=== PATIENT | male | born 1970 | race Caucasian/White ===

== ENCOUNTER 2017-06-03 08:04 | Emergency (ER) | payer OTHER, SELFPAY ==
[2017-06-03 08:05] VITALS: BP 164/112; PULSE 92; RESP 22; TEMP 36.9; O2SAT 98; BMI 25.2
--- NOTE | 2017-06-03 08:15 | XR_ITS ---
XR chest 2V HISTORY: ITS.REASON: chest pain ORDERING PHYSICIAN: PATIENT AGE: 46 years COMPARISON: None available FINDINGS: The cardiomediastinal silhouette and pulmonary vascularity are within normal limits. The lungs are clear without infiltrates, suspicious nodules, or pleural effusions. There is calcified granuloma in the left perihilar region. No acute bony abnormalities. IMPRESSION: No acute finding. Old granulomatous disease
--- NOTE | 2017-06-03 08:22 | PC.NURSE ---
Rechecked pt temp and it was 99.9 orally/
--- NOTE | 2017-06-03 08:38 | HMH.EDCP ---
ED Disposition Clinical Impression: Atypical chest pain Disposition: Home, Self-Care Condition on Discharge: Good Instructions: DI for Atypical Chest Pain Additional Instructions: See PCP in 1-3 days. Advil as needed. Continue allopurinol. - Critical Care Critical Care Time: No Attestation: On , the high probability of a clinically significant, sudden or life threatening deterioration of the following system(s) required my full and direct attention, intervention and personal management. The time I documented below is in addition to time spent performing reported procedures but includes the following listed in this critical care notation. Medical Decision Making - Medical Records Medical records reviewed: Yes: I reviewed the patient's medical records. Vital Signs: 06/03/17 08:05 Temperature 98.4 F Temperature Source Oral Pulse Rate [Right Brachial] 92 H Respiratory Rate 22 Blood Pressure [Right Arm] 164/112 Blood Pressure Mean [Right Arm] 129 Blood Pressure Source [Right Arm] Automatic Cuff Blood Pressure Position [Right Arm] Sitting 02 Sat by Pulse Oximetry 98 Oxygen Delivery Method Nasal Cannula - Lab Data Lab results reviewed: Yes: I reviewed the patient's lab results. Lab Results 06/03/17 08:30: WBC 9.6, RBC 4.66, Hgb 15.2, Hct 43.5, MCV 93.3, MCH 32.7 H, MCHC 35.0, RDW 12.3, Plt Count 200, MPV 8.3, Neut % (Auto) 81.8 H, Lymph % (Auto) 12.7, [place] % (Auto) 5.0, Eos % (Auto) 0.2, Baso % (Auto) 0.3, Neut # (Auto) 7.8, Lymph # (Auto) 1.2, [place] # (Auto) 0.5, Eos # (Auto) 0.0, Baso # (Auto) 0.0 06/03/17 08:30: Sodium 134 L, Potassium 3.7, Chloride 98, Carbon Dioxide 24, Anion Gap 15.7 H, BUN 9, Creatinine 1.09, Estimated Creat Clear 99, Estimated GFR 72, Est GFR ( Amer) 87, Glucose 114 H, Calcium 9.0, Total Bilirubin 1.7 H, AST 27, ALT 58, Alkaline Phosphatase 86, Total Creatine Kinase 111, CK-MB (CK-2) < 0.5, CK-MB (CK-2) Rel Index 0.5, Troponin I < 0.02, Cardiac CRP 25.1 H, Total Protein 7.9, Albumin 4.0, Globulin 3.9 H, Albumin/Globulin Ratio 1.0 L 06/03/17 08:30: Lactic Acid 1.0 06/03/17 08:30: Influenza Type A Ag Negative, Influenza Type B Ag Negative Result diagrams: 06/03/17 08:30 06/03/17 08:30 Orders (Tests/Meds): ED MEDICATIONS Generic Name Dose Route Start Last Admin Trade Name Freq PRN Reason Stop Dose Admin Nitroglycerin 0.4 mg 06/03/17 08:17 06/03/17 08:29 Nitrostat 0.4mg Sl Tablet SL 07/03/17 08:16 0.4 mg Q5MINP PRN Administration Chest Pain Discontinued Medications Generic Name Dose Route Start Last Admin Trade Name Freq PRN Reason Stop Dose Admin Aspirin 324 mg 06/03/17 08:21 06/03/17 08:29 Aspirin 81mg Chewable Tablet PO 06/03/17 08:22 324 mg ONCE ONE Administration Ketorolac Tromethamine 30 mg 06/03/17 09:26 Toradol 30mg/Ml Vial IV 06/03/17 09:27 ONCE ONE ORDERS Category Date Time Status Complete Blood Count Auto Diff Stat Lab 06/03/17 08:30 Results Erythrocyte Sedimentation Rate Stat Lab 06/03/17 08:30 Results Blood Culture Stat Micro 06/03/17 08:30 Received - Radiology Data #1 Image(s): Chest Image Reviewed: Yes I reviewed the patient's radiology image Preliminary Findings: Normal/NAD, No Infiltrates Seen, Normal Heart Size - ECG Data Tracing #1 I reviewed this ECG and interpreted as documented below: Normal sinus rhythm with rate of 89. Normal axis and intervals. No acute ST changes. no Ectopy or hypertrophy. - Shmuel Inquiry Pt receiving controlled substance: No Medical Decision Making Narrative: Patient's symptoms more c/w his inflammatory issues. CRP elevated. Already on Allopurinol; declines Indomethacin; declines Colchicine; tolerates Advil so may take that until seen by PCP. Chest Pain HPI - General Chief Complaint: Chest Pain Stated Complaint: chest pain, left arm gout pain Time Seen by Provider: 06/03/17 08:10 Mode of Arrival: Ambulatory Source of Information
--- NOTE | 2017-06-03 08:42 | ED_ITS ---
ED Disposition Clinical Impression: Atypical chest pain Disposition: Home, Self-Care Condition on Discharge: Good Instructions: DI for Atypical Chest Pain Additional Instructions: See PCP in 1-3 days. Advil as needed. Continue allopurinol. - Critical Care Critical Care Time: No Attestation: On , the high probability of a clinically significant, sudden or life threatening deterioration of the following system(s) required my full and direct attention, intervention and personal management. The time I documented below is in addition to time spent performing reported procedures but includes the following listed in this critical care notation. Medical Decision Making - Medical Records Medical records reviewed: Yes: I reviewed the patient's medical records. Vital Signs: 06/03/17 08:05 Temperature 98.4 F Temperature Source Oral Pulse Rate [Right Brachial] 92 H Respiratory Rate 22 Blood Pressure [Right Arm] 164/112 Blood Pressure Mean [Right Arm] 129 Blood Pressure Source [Right Arm] Automatic Cuff Blood Pressure Position [Right Arm] Sitting 02 Sat by Pulse Oximetry 98 Oxygen Delivery Method Nasal Cannula - Lab Data Lab results reviewed: Yes: I reviewed the patient's lab results. Lab Results 06/03/17 08:30: WBC 9.6, RBC 4.66, Hgb 15.2, Hct 43.5, MCV 93.3, MCH 32.7 H, MCHC 35.0, RDW 12.3, Plt Count 200, MPV 8.3, Neut % (Auto) 81.8 H, Lymph % (Auto ) 12.7, [place] % (Auto) 5.0, Eos % (Auto) 0.2, Baso % (Auto) 0.3, Neut # (Auto) 7.8, Lymph # (Auto) 1.2, [place] # (Auto) 0.5, Eos # (Auto) 0.0, Baso # (Auto) 0.0 06/03/17 08:30: Sodium 134 L, Potassium 3.7, Chloride 98, Carbon Dioxide 24, Anion Gap 15.7 H, BUN 9, Creatinine 1.09, Estimated Creat Clear 99, Estimated GFR 72, Est GFR ( Amer) 87, Glucose 114 H, Calcium 9.0, Total Bilirubin 1.7 H, AST 27, ALT 58, Alkaline Phosphatase 86, Total Creatine Kinase 111, CK- MB (CK-2) < 0.5, CK-MB (CK-2) Rel Index 0.5, Troponin I < 0.02, Cardiac CRP 25.1 H, Total Protein 7.9, Albumin 4.0, Globulin 3.9 H, Albumin/Globulin Ratio 1.0 L 06/03/17 08:30: Lactic Acid 1.0 06/03/17 08:30: Influenza Type A Ag Negative, Influenza Type B Ag Negative Result diagrams: 06/03/17 08:30 06/03/17 08:30 Orders (Tests/Meds): ED MEDICATIONS Generic Name Dose Route Start Last Admin Trade Name Freq PRN Reason Stop Dose Admin Nitroglycerin 0.4 mg 06/03/17 08:17 06/03/17 08:29 Nitrostat 0.4mg Sl Tablet SL 07/03/17 08:16 0.4 mg Q5MINP PRN Administration Chest Pain Discontinued Medications Generic Name Dose Route Start Last Admin Trade Name Freq PRN Reason Stop Dose Admin Aspirin 324 mg 06/03/17 08:21 06/03/17 08:29 Aspirin 81mg Chewable Tablet PO 06/03/17 08:22 324 mg ONCE ONE Administration Ketorolac Tromethamine 30 mg 06/03/17 09:26 Toradol 30mg/Ml Vial IV 06/03/17 09:27 ONCE ONE ORDERS Category Date Time Status Complete Blood Count Auto Diff Stat Lab 06/03/17 08:30 Results Erythrocyte Sedimentation Rate Stat Lab 06/03/17 08:30 Results Blood Culture Stat Micro 06/03/17 08:30 Received - Radiology Data #1 Image(s): Chest Image Reviewed: Yes I reviewed the patient's radiology image Preliminary Findings: Normal/NAD, No Infiltrates Seen, Normal Heart Size - ECG Data
[2017-06-03 08:49] LABS: Basophils % 0.3 % (0.1-2.0); Eosinophils % 0.2 % (0.1-12.0); Hematocrit 43.5 % (42.0-52.0); Hemoglobin 15.2 g/dL (14.1-18.0); Lymphocytes # 1.2 K/mm3 (0.7-4.5); Lymphocytes % 12.7 K/mm3 (10-50); Mean Corpuscular Hemoglobin 32.7 pg (27.0-31.2); Mean Corpuscular Volume 93.3 fl (80-94); Mean Platelet Volume 8.3 fl (7.4-10.4); Monocytes # 0.5 K/mm3 (0.1-1.0); Neutrophils # 7.8 K/mm3 (1.8-7.8); Neutrophils % 81.8 % (37.0-80.0); Platelet Count 200 K/mm3 (142-424); Red Blood Count 4.66 M/mm3 (4.60-6.20); Red Cell Distribution Width 12.3 % (11.5-17.5); White Blood Count 9.6 K/mm3 (4.8-10.8)
[2017-06-03 09:19] LABS: Troponin I < 0.02 ng/ml (0.00-0.06)
[2017-06-03 09:20] LABS: Creatine Kinase MB < 0.5 mg/ml (0.0-3.6)
[2017-06-03 09:35] LABS: Alanine Aminotransferase 58 U/L (12-78); Alkaline Phosphatase 86 U/L (46-116); Anion Gap 15.7 mEq/L (5-15); Aspartate Amino Transferase 27 U/L (15-37); Bilirubin,Total 1.7 mg/dL (0.2-1.0); Blood Urea Nitrogen 9 mg/dL (7-18); CKMB Relative Index 0.5 U/L (0-4.0); Carbon Dioxide 24 mmol/L (21.0-32.0); Chloride 98 mmol/L (98-107); Creatine Kinase 111 U/L (39-308); Creatinine Clearance Estimated 99 mL/min (0-300); Creatinine,Serum 1.09 mg/dL (0.70-1.30); Estimated Glomerular Filt Rate 72 ml/min (>60); GFR (African American) 87 ML/MIN (>60); Globulin 3.9 gm/dl (1.3-3.2); Glucose 114 mg/dL (74-106); Potassium 3.7 mmoL/L (3.5-5.1); Sodium 134 mmol/L (136-145); Total Protein,Serum 7.9 gm/dL (6.4-8.2)
--- NOTE | 2017-06-03 10:11 | PC.NURSE ---
one vial of ketorolac waisted due to error drawing out of vial
[2017-06-03 10:20] VITALS: BP 139/89; PULSE 84; RESP 20; TEMP 36.9; O2SAT 99
[2017-06-03 10:30] LABS: Erythrocyte Sedimentation Rate 27 mm/hr (0-15)
== END 2017-06-03 10:20 | disposition home or self-care (01) ==
PROVIDERS: Emergency Provider Emergency Medicine; Family Provider Family Medicine
DX: R07.89 Other chest pain (principal); M10.9 Gout, unspecified; M54.5 Low back pain; I10 Essential (primary) hypertension; E78.00 Pure hypercholesterolemia, unspecified; F17.290 Nicotine dependence, other tobacco product, uncomplicated
CPT/HCPCS: 71046; 80053; 82550; 82553; 83605; 84484; 85025; 85651; 86141; 87040; 87275; 87276; 93005; 93041; 96374; 99284

== ENCOUNTER → 2017-08-01 13:11 | Outpatient (POV) | payer OTHER, SELFPAY ==
[2017-08-01 13:45] VITALS: BP 113/86; PULSE 70; RESP 16; O2SAT 93; BMI 24.7
--- NOTE | 2017-08-01 14:34 | HMH.PMCON ---
Assessment and Plan (1) Degenerative joint disease (DJD) of lumbar spine Current visit: Yes Status: Chronic Qualifiers: Spinal osteoarthritis complication: without myelopathy or radiculopathy Qualified Code(s): M47.816 - Spondylosis without myelopathy or radiculopathy, lumbar region Category: Medical Code(s): M47.816 - Spondylosis without myelopathy or radiculopathy, lumbar region (2) Low back pain at multiple sites Current visit: Yes Status: Chronic Category: Medical Code(s): M54.5 - Low back pain - Assessment and plan all Dx Assessment and Plan for all problems:: I do believe this patient would be ideal for intrathecal therapy or spinal cord stimulation. Given his low back pain I believe you a good candidate for intrathecal therapy. I have given him information on intrathecal therapy. The patient is not interested in pursuing intrathecal therapy or spinal cord stimulation at this time. He will call us back if he decides to pursue any intervention. He has failed all other conservative therapy and exhausted all conservative treatment options. HPI - Data of Consult Patient: new to practice Consult date: 08/01/17 Requesting Physician: Lex Whitfield MD Primary Care Provider: Alessandro Mosher MD Family Provider: Alessandro Mosher MD - Consult Narrative Reason for consult: Low back pain History of present illness: Mr. Santos is a 46 year old male who has a long history of low back pain previously treated by Dr. Hatfield. He has received multiple injections, chiropractic therapy and he is not a surgical candidate. He is currently on disability. He was referred here as Dr. Hatfield has exhausted all treatment options. He is not on any oral narcotics. I have given him options of intrathecal therapy. He is going to think about it however he does not seem interested. Most of his pain is worse while standing or walking. He has chronic arthritis in his back. Pain score is a 6 out of 10. He tried chiropractic therapy and physical therapy. He is failed all conservative treatment and he is not a surgical candidate. CC: Lex Whitfield MD [facility] History I have reviewed the patient's past medical history: Yes Medical History: Reports:: Hyperlipidemia, Hypertension Denies:: Cancer, Diabetes Mellitus Type 1, Diabetes Mellitus Type 2, MRSA Other Medical History: Reports: Arthritis Amputation: No Fractures: No - *Social History Educational Level: Completed High School Smoking Status: Current every day smoker Tobacco Type: cigarettes # Packs/Day (cigarettes): 1 Alcohol Intake: never Occupational Status: disabled - Psychiatric History Expresses thoughts of harming self/others: None Suicide Plan Description: No Plan Review of Systems - Review of Systems Review of systems:: pertinent systems reviewed and negative unless documented below - *Musculoskeletal Reports back pain, Reports stiffness Meds Home Medications Medication Instructions Recorded Confirmed Type Losartan/Hydrochlorothiazide 1 each PO DAILY 06/03/17 06/03/17 History [Losartan-Hctz 50-12.5 mg Tab] Metoprolol Succinate 25 mg PO DAILY 06/03/17 06/03/17 History Allopurinol [Zyloprim] 100 mg PO DAILY 08/01/17 08/01/17 History predniSONE [Prednisone 5mg 5 mg PO DAILY 08/01/17 08/01/17 History Tab] Allergies Allergy/AdvReac Type Severity Reaction Status Date / Time codeine Allergy Mild Verified 06/03/17 08:18 Objective Vital signs: Pulse Resp BP Pulse Ox 70 16 113/86 93 L 08/01/17 13:45 08/01/17 13:45 08/01/17 13:45 08/01/17 13:45 - Routine Back/Spine/Pelvis Exam Back/Spine: Present: paraspinal tenderness, vertebral tenderness Opioid Risk Tool - Opioid Risk Tool-Male Family hx alcohol abuse: N Family hx illegal drugs: N Family hx rx drug abuse: N Personal hx alcohol abuse: N Personal hx illegal drugs: N Personal hx rx drug abuse: N Age: 45+ Hx of sexual abuse: N Men
--- NOTE | 2017-08-01 14:37 | P.CONS_ITS ---
Assessment and Plan (1) Degenerative joint disease (DJD) of lumbar spine Current visit: Yes Status: Chronic Qualifiers: Spinal osteoarthritis complication: without myelopathy or radiculopathy Qualified Code(s): M47.816 - Spondylosis without myelopathy or radiculopathy, lumbar region Category: Medical Code(s): M47.816 - Spondylosis without myelopathy or radiculopathy, lumbar region (2) Low back pain at multiple sites Current visit: Yes Status: Chronic Category: Medical Code(s): M54.5 - Low back pain - Assessment and plan all Dx Assessment and Plan for all problems:: I do believe this patient would be ideal for intrathecal therapy or spinal cord stimulation. Given his low back pain I believe you a good candidate for intrathecal therapy. I have given him information on intrathecal therapy. The patient is not interested in pursuing intrathecal therapy or spinal cord stimulation at this time. He will call us back if he decides to pursue any intervention. He has failed all other conservative therapy and exhausted all conservative treatment options. HPI - Data of Consult Patient: new to practice Consult date: 08/01/17 Requesting Physician: Lex Whitfield MD Primary Care Provider: Alessandro Mosher MD Family Provider: Alessandro Mosher MD - Consult Narrative Reason for consult: Low back pain History of present illness: Mr. Santos is a 46 year old male who has a long history of low back pain previously treated by Dr. Hatfield. He has received multiple injections, chiropractic therapy and he is not a surgical candidate. He is currently on disability. He was referred here as Dr. Hatfield has exhausted all treatment options. He is not on any oral narcotics. I have given him options of intrathecal therapy. He is going to think about it however he does not seem interested. Most of his pain is worse while standing or walking. He has chronic arthritis in his back. Pain score is a 6 out of 10. He tried chiropractic therapy and physical therapy. He is failed all conservative treatment and he is not a surgical candidate. CC: Lex Whitfield MD [facility] History I have reviewed the patient's past medical history: Yes Medical History: Reports:: Hyperlipidemia, Hypertension Denies:: Cancer, Diabetes Mellitus Type 1, Diabetes Mellitus Type 2, MRSA Other Medical History: Reports: Arthritis Amputation: No Fractures: No - *Social History Educational Level: Completed High School Smoking Status: Current every day smoker Tobacco Type: cigarettes # Packs/Day (cigarettes): 1 Alcohol Intake: never Occupational Status: disabled - Psychiatric History Expresses thoughts of harming self/others: None Suicide Plan Description: No Plan Review of Systems - Review of Systems Review of systems:: pertinent systems reviewed and negative unless documented below - *Musculoskeletal Reports back pain, Reports stiffness Meds Home Medications Medication Instructions Recorded Confirmed Type Losartan/Hydrochlorothiazide 1 each PO DAILY 06/03/17 06/03/17 History [Losartan-Hctz 50-12.5 mg Tab] Metoprolol Succinate 25 mg PO DAILY 06/03/17 06/03/17 History Allopurinol [Zyloprim] 100 mg PO DAILY 08/01/17 08/01/17 History predniSONE [Prednisone 5mg 5 mg PO DAILY 08/01/17 08/01/17 History Tab] Allergies Allergy/AdvReac Type Severity Reaction Status Date / Time codeine Allergy Mild Verified 06/03/17 08:18 Ob
== END ==
PROVIDERS: Family Provider Family Medicine; PCP Family Medicine; Visit Provider Anesthesiology
DX: M47.816 Spondylosis without myelopathy or radiculopathy, lumbar region (principal)
CPT/HCPCS: 99202

== ENCOUNTER 2020-07-24 10:48 | Emergency (ER) | payer OTHER, SELFPAY ==
[2020-07-24 10:49] VITALS: BP 165/109; BP 167/93; PULSE 87; PULSE 98; RESP 18; TEMP 36.6; O2SAT 97; O2SAT 98; BMI 27.1
--- NOTE | 2020-07-24 11:17 | HMH.EDGENADL ---
ED Disposition Clinical Impression: Spasm of back muscles Degenerative joint disease (DJD) of lumbar spine Qualifiers: Spinal osteoarthritis complication: without myelopathy or radiculopathy Qualified Code(s): M47.816 - Spondylosis without myelopathy or radiculopathy, lumbar region Disposition: Home, Self-Care Condition on Discharge: Fair Prescriptions: predniSONE [Prednisone 10mg Tab Dose-Pack] 10 mg PO UD DOSE PK #1 pack Transmission Status: Pending to Clinic [facility] Referrals: Alessandro Mosher MD [Primary Care Provider] - Time of Disposition: 12:35 - Critical Care Critical Care Time: No Attestation: On 07/24/20, the high probability of a clinically significant, sudden or life threatening deterioration of the following system(s) required my full and direct attention, intervention and personal management. The time I documented below is in addition to time spent performing reported procedures but includes the following listed in this critical care notation. Medical Decision Making - Medical Records Medical records reviewed: Yes: I reviewed the patient's medical records. - Shmuel Inquiry Pt receiving controlled substance: No Vital Signs: 07/24/20 10:49 07/24/20 11:19 07/24/20 12:00 Temperature 97.9 F Temperature Source Oral Pulse Rate [Right] 87 95 H Respiratory Rate 18 18 Blood Pressure [Right Arm] 167/93 H 145/71 H 135/76 Blood Pressure Mean [Right Arm] 117 95 95 02 Sat by Pulse Oximetry 98 98 Orders (Tests/Meds): ED MEDICATIONS Discontinued Medications Generic Name Dose Route Start Last Admin Trade Name Freq PRN Reason Stop Dose Admin Diazepam 2.5 mg 07/24/20 11:14 07/24/20 11:33 Diazepam 5mg Tablet PO 07/24/20 11:15 2.5 mg ONCE ONE Administration Ketorolac Tromethamine 15 mg 07/24/20 11:13 07/24/20 11:34 Ketorolac 30mg/Ml Vial IM 07/24/20 11:14 15 mg ONCE ONE Administration Methylprednisolone Sodium Succinate 125 mg 07/24/20 11:13 07/24/20 11:35 Methylprednisolone Sod Succ 125mg Vial IM 07/24/20 11:14 125 mg ONCE ONE Administration Medical Decision Narrative: In summary this is a 49-year-old male presenting to the emergency department with back spasms. Patient clinically stable on arrival. Vital signs within normal limits. Patient says this pain is similar to spasms he said before. Denies any neurologic symptoms in his legs. Denies signs of cauda equina. No anterior abdominal pain, leg weakness, pulsatile abdominal mass to indicate aortic pathology. We will start with symptomatic management. Patient given Toradol, methylprednisolone On reassessment patient was feeling somewhat better. No longer having spasms of pain. Anterior abdominal pain. No flank pain. No numbness or weakness in his legs. He was able to ambulate without difficulty. No foot drop. Counseled to follow-up closely with his PCP. Stable for discharge. General Adult HPI - General Chief complaint: Back Pain/Injury Stated complaint: back pain Time Seen by Provider: 07/24/20 11:18 Mode of Arrival: Family Vehicle Limitations: No Limitations Description of Symptoms (Recalled from ER Triage Doc. by RN): PT C/O BACK PAIN X 1 WEEK. PT REPORTS HE HAS A HX OF SPONDYLOSIS. PT REPORTS DIFFICULTLY WITH WALKING. PT DENIES ANY RECENT INJURY. - History of Present Illness HPI narrative: 49-year-old male presenting to the emergency department with back pain. Pain is located midline in the lower lumbar spine. Described as a squeezing, spasm sensation. He has had multiple back spasms over the last 24 hours. They come and go. Improved with walking, stretching. This is a problem that he has had many times before. Has been referred to chiropractor, spinal surgeon. No intervention offered. He currently takes ibuprofen for pain. No numbness, weakness, tingling in his genital area. No difficulty ambulating. No changes in bowel or bladder habits. No falls, injuri
[2020-07-24 11:19] VITALS: BP 145/71; PULSE 95; RESP 18; O2SAT 98
[2020-07-24 12:00] VITALS: BP 135/76
--- NOTE | 2020-07-24 12:22 | PC.NURSE ---
Pt states his pain is better
[2020-07-24 12:30] VITALS: BP 107/50
[2020-07-24 12:55] VITALS: BP 103/54; PULSE 71; RESP 16; TEMP 36.7; O2SAT 98
== END 2020-07-24 12:52 | disposition home or self-care (01) ==
PROVIDERS: Emergency Provider Emergency Medicine; PCP Family Medicine
DX: M47.816 Spondylosis without myelopathy or radiculopathy, lumbar region (principal); M62.830 Muscle spasm of back; E78.5 Hyperlipidemia, unspecified; I10 Essential (primary) hypertension; F17.290 Nicotine dependence, other tobacco product, uncomplicated; Z79.899 Other long term (current) drug therapy
CPT/HCPCS: 99282

== ENCOUNTER → 2021-01-14 15:06 | Outpatient (CLI) | payer OTHER, SELFPAY ==
--- NOTE | 2021-01-14 | CA_ITS ---
APPROVED REPORT EXAM: Comprehensive 2D, Doppler, and color-flow Echocardiogram Roll Forger: Kelli Gee, RCS, RVS Ht: 6 ft 0 in Wt: 208lbs BSA: 2.17 BP: 143/100 mmHg Indications: HTN, Back injury, chronic back pain, muirmur, smoker, copd, HLD 2D Dimensions IVSd 1.12 cm LVEF (Visual) 62.50 % PWd 0.91 cm LA Volume 29.90 mL LVDd 4.99 cm LA Volume Index 13.715398 mL/m2 (M/F) 16-34 LVDs 3.30 cm Aortic Root 3.51 cm Left Atrium 2.73 cm LVOT 2.15 cm (M/F) 1.5-2.5 M-Mode Dimensions LA Diam 2.98 cm (1.9-4.0) LVDd 5.05 cm (3.5-5.7) Ao Diam 4.08 cm (2.0-3.7) LVDs 3.58 cm (3.5-5.7) EF (Teich) 55.60% EPSs 0.91 cm FS 29.10% EDV (Teich) 121.00 mL TAPSE 2.04 (<1.7) ESV (Teich) 53.70 mL LV Diastology E Decel Time 297.00 (160-240 msec) E/A Ratio 0.75 MED E' 4.90 (< 7 cm/sec) MED A' 7.60 cm/s E'/MED E' Ratio 8.82 (>14) LAT E' 6.50 (<10 cm/sec) LAT A' 12.10 cm/s E/LAT E' Ratio 6.65 (>14) Aortic Valve LVOT Max 97.00 (70-110 cm/s) LVOT VTI 19.26 cm AoV Peak Jean Claude. 117.00 (50-130 cm/s) AI PHT 642.00 ms AO Peak GR. 5.50 mmHg AO Mean GR. 2.70 (<5 mmHg) AO VTI 20.45 (18-25 cm) CHUCK (VTI) 3.42 (2.5-4.5 cm2) Mitral Valve MV A Velocity 57.00 (40-130 cm/s) E/A Ratio 0.75 MV Decel. Time 297.00 (160-240 ms) Pulmonary Valve PV Peak Velocity 76.00 (50-150 cm/s) PA End VMAX 188.00 cm/s Left Ventricle Left atrium is mildly enlarged, left ventricle is normal size, mild concentric left ventricular hypertrophy, visually estimated ejection fraction 55% with no regional wall motion abnormality, grade 1 diastolic dysfunction seen without tissue Doppler evidence of raise left atrial pressure. Right Ventricle Right atrium and right ventricle are mildly enlarged with normal contractility. Aortic Valve Aortic valve is minimally thickened and calcified there is no aortic stenosis, there is mild aortic insufficiency. Mitral Valve Mitral valve is grossly normal, there is trace mitral regurgitation. Tricuspid Valve Tricuspid grossly normal, there is trace tricuspid regurgitation, tricuspid regurgitation jet velocity is inadequate for calculation of the right ventricular systolic pressure. Pulmonic Valve Pulmonic valve is poorly visualized. Great Vessels Aortic root is normal size. Pericardium No significant pericardial effusion noted. Conclusion 1. Biatrial enlargement, normal left ventricular size, mild concentric left ventricular hypertrophy, visually estimated ejection fraction 55% with no regional wall motion abnormality, grade 1 diastolic dysfunction seen without tissue Doppler evidence of raise left atrial pressure. 2. Mildly enlarged right ventricle with normal contractility. 3. Thickened and calcified aortic valve without aortic stenosis, there is mild aortic insufficiency. 4. Trace mitral and tricuspid regurgitation. 5. No significant pericardial effusion noted. Electronically signed by : Fercho Hickman MD 01/15/2021 15:42:27
== END ==
PROVIDERS: PCP Family Medicine; Visit Provider Physician Assistant
DX: R07.89 Other chest pain (principal)
CPT/HCPCS: 93306

== ENCOUNTER 2022-08-09 08:29 | Emergency (ER) | payer OTHER, SELFPAY ==
[2022-08-09] VITALS (10 sets, daily range): BP systolic 129–178; BP diastolic 86–128; PULSE 68–107; RESP 16–20; TEMP 37.3; O2SAT 95–98; BMI 27.1
--- NOTE | 2022-08-09 08:26 | ECG_ITS ---
APPROVED REPORT Exam: Resting ECG HR:101 bpm ECG Measurements Heart Rate 101 AXES MO 177 P 52 QRSd 104 QRS 2 QT 304 T 37 QTc 362 Conclusion SINUS TACHYCARDIA ABNORMAL RHYTHM ECG UNCONFIRMED REPORT Electronically signed by : Scott Cruz MD 08/10/2022 03:03:06
--- NOTE | 2022-08-09 08:35 | XR_ITS ---
FINAL REPORT CLINICAL HISTORY: chest pain COMPARISON: May 2017 FINDINGS: PA and lateral views of the chest were obtained. The cardiac and mediastinal silhouettes are within normal limits. There is evidence of granulomatous disease. The lungs are otherwise clear. There is no pleural effusion or pneumothorax. No acute osseous abnormality is identified. IMPRESSION: No radiographic evidence of acute cardiac or pulmonary disease. Reviewed, Interpreted and Dictated by Nicole Almonte MD Transcribed by Franklin Bella Authenticated and [facility]
[2022-08-09 08:41] LABS: Basophils % 0.9 % (0.1-2.0); Eosinophils # 0.1 K/mm3 (0.0-0.4); Eosinophils % 1.8 % (0.1-12.0); Hematocrit 51.4 % (42.0-52.0); Hemoglobin 17.3 g/dL (14.1-18.0); Lymphocytes # 1.7 K/mm3 (0.7-4.5); Lymphocytes % 35.3 % (10-50); Mean Corpuscular HGB Conc 33.6 g/dL (31.8-35.4); Mean Corpuscular Hemoglobin 33.4 pg (27.0-31.2); Mean Corpuscular Volume 99.4 fl (80-94); Mean Platelet Volume 8.4 fl (7.4-10.4); Monocytes # 0.3 K/mm3 (0.1-1.0); Monocytes % 6.9 % (1.7-9.3); Neutrophils # 2.7 K/mm3 (1.8-7.8); Neutrophils % 55.2 % (37.0-80.0); Platelet Count 172 K/mm3 (142-424); Red Blood Count 5.16 M/mm3 (4.60-6.20); Red Cell Distribution Width 13.4 % (11.5-17.5); White Blood Count 4.9 K/mm3 (4.8-10.8)
[2022-08-09 08:47] LABS: Anion Gap 13.3 mEq/L (5-15); Blood Urea Nitrogen 15 mg/dl (9-20); Calcium 9.1 mg/dl (8.4-10.2); Carbon Dioxide 27 mmol/L (22.0-30.0); Chloride 101 mmol/L (98-107); Creatinine Clearance Estimated 100 mL/min (50-200); Estimated Glomerular Filt Rate 70 ml/min (>60); GFR (African American) 85 ML/MIN (>60); Glucose 102 mg/dl (74-100); Potassium 4.3 mmoL/L (3.5-5.1); Sodium 137 mmol/L (136-145)
[2022-08-09 09:00] LABS: Troponin I < 0.01 ng/ml (0.00-0.034)
--- NOTE | 2022-08-09 09:09 | PC.NURSE ---
Rounded on pt. resting in bed. call light within reach. bed in lowest position. family at bedside. no questions or concerns voiced at this time.
[2022-08-09 09:23] LABS: D-Dimer 0.73 ug/mL (0.0-0.5)
--- NOTE | 2022-08-09 09:43 | HMH.EDGENADL ---
Discharge Plan Disposition Patient Disposition: Home, Self-Care Prescriptions Prescriptions: New nitroglycerin 0.4 mg tablet, sublingual 0.4 mg sublingual Q5M PRN (Reason: chest pain) Qty: 10 0RF Rx Instructions: do not exceed 3 doses per episode No Action losartan-hydrochlorothiazide 50-12.5 mg tablet 1 tab PO DAILY Qty: 30 11RF metoprolol succinate 25 mg tablet extended release 24 hr 25 mg PO DAILY Qty: 30 11RF allopurinol 100 mg tablet 300 mg PO DAILY Referrals Follow up/Referrals: Alessandro Mosher MD [Primary Care Provider] - See instructions Jimmie Connelly MD [Staff Physician] - See instructions Activity Restrictions/Add. Instructions Additional Instructions/Restrictions: Return for worsening chest pain or any other concerns within the next 8 hours otherwise follow-up with cardiology Clinical Impressions Clinical Impression: Chest pain Discharge ED Provider: Kyle Abraham General Adult HPI General Chief complaint: Chest Pain Stated complaint: Chest Pain Time Seen by Provider: 08/09/22 08:30 Mode of Arrival: Ambulatory Source of Information: Patient Limitations: No Limitations Description of Symptoms (Recalled from ER Triage Doc. by RN): pt reports chest pain that started this morning, explains it as an aching feeling in the center of his chest, denies sob, cough, fever History of Present Illness HPI narrative: 51-year-old male with history of hyperlipidemia hypertension presents with substernal chest pain since this morning. He says he woke up with it. No fever chills or cough. Pain does not radiate to his back was not tearing or ripping. No dysuria or hematuria. No shortness of air with it. No hemoptysis or prior pulmonary embolism or DVT. No recent travel or surgery. The pain is intermittent and coming and going. He has not had any nitroglycerin yet. Related Data Home Medications Medication Instructions Recorded Confirmed allopurinol 100 mg tablet 300 mg PO DAILY gout 11/01/17 08/09/22 Previous Rx's Medication Instructions Recorded losartan 50 mg-hydrochlorothiazide 1 tab PO DAILY High cholesterol 11/25/21 12.5 mg tablet #30 tabs metoprolol succinate 25 mg 25 mg PO DAILY Hypertension #30 11/25/21 tablet,extended release 24 hr tabs nitroglycerin 0.4 mg sublingual 0.4 mg sublingual Q5M PRN chest 08/09/22 tablet pain #10 tabs Allergies Allergy/AdvReac Type Severity Reaction Status Date / Time codeine Allergy Mild Verified 08/09/22 08:39 [facility] Disclaimer: The information contained in this section may have been updated after the patient was seen, as this information can be updated by other users. Social History Smoking Status: Never smoker alcohol intake: never current occupational status: disabled Travel in the last 8 weeks: Inside the [place] ROS Obtained: Yes All systems reviewed & no additional complaints except as documented Constitutional Constitutional: Denies fatigue Eyes Eyes: Denies dry eyes ENT Ears, Nose, Mouth, and Throat: Denies dry mouth Cardiovascular Cardiovascular: Denies diaphoresis and Denies dyspnea Respiratory Respiratory: Denies dyspnea and Denies wheezing Gastrointestinal Gastrointestingal: Denies heartburn Genitourinary Male Genitourinary: Denies flank pain Musculoskeletal Musculoskeletal: Denies numbness Integumentary/Breasts Skin/Breast: Denies rash Neurologic Neurologic: Denies numbness Endocrine Endocrine: Denies fatigue Allergic/Immunologic Allergic/Immunologic: Denies wheezing Physical Exam General General appearance: alert and in no apparent distress Eye Eye exam: Present PERRL and EOMI ENT ENT exam: Present normal exam and normal oropharynx Neck Neck exam: Present normal inspection Chest Chest inspection: Present symmetric chest wall rise Respiratory Respiratory exam: Present normal lung sounds bilaterally; Absent respiratory distress Cardiovascular Cardiovascula
--- NOTE | 2022-08-09 10:37 | PC.NURSE ---
checked with rad staff r/t readings on xrays. states scan is being read at this time
--- NOTE | 2022-08-09 10:40 | PC.NURSE ---
updated pt on care. no questions or concerns voiced. call light within reach. bed in lowest position.
--- NOTE | 2022-08-09 11:25 | PC.NURSE ---
Pt's second troponin sent
[2022-08-09 11:55] LABS: Troponin I < 0.01 ng/ml (0.00-0.034)
== END 2022-08-09 12:24 | disposition home or self-care (01) ==
PROVIDERS: Emergency Provider Emergency Medicine; PCP Family Medicine
DX: R07.9 Chest pain, unspecified (principal); I10 Essential (primary) hypertension
CPT/HCPCS: 71046; 80048; 84484; 85025; 85378; 93005; 99285

== ENCOUNTER 2022-09-29 11:32 | Emergency (ER) | payer OTHER, SELFPAY ==
--- NOTE | 2022-09-29 | ECG_ITS ---
APPROVED REPORT Exam: Resting ECG HR:79 bpm ECG Measurements Heart Rate 79 AXES MI 176 P 33 QRSd 101 QRS 13 QT 329 T 32 QTc 363 Conclusion SINUS RHYTHM NORMAL ECG UNCONFIRMED REPORT Electronically signed by : Scott Cruz MD 09/30/2022 21:40:50
[2022-09-29 11:32] VITALS: BP 173/97; PULSE 76; RESP 18; TEMP 36.6; O2SAT 96; BMI 27.5
[2022-09-29 11:38] VITALS: BMI 27.5
[2022-09-29 12:03] VITALS: BP 158/74; PULSE 91; O2SAT 95
--- NOTE | 2022-09-29 12:06 | CT_ITS ---
FINAL REPORT TECHNIQUE: Thin section axial CT with IV contrast supplemented with multiplanar reconstruction under CT angiogram protocol. This study was performed with techniques to keep radiation doses as low as reasonably achievable (ALARA). Individualized dose reduction techniques using automated exposure control or adjustment of mA and/or kV according to the patient''s size were employed. NASCET criteria was utilized during interpretation. CLINICAL HISTORY: dizziness FINDINGS: Aortic arch: Arch shows no significant narrowing. Great vessel origins are widely patent. Right carotid: There is approximately 50-60% diameter stenosis involving the right carotid bulb. Left carotid: No significant stenosis is seen of the cervical common or internal carotid artery. Vertebral: Right vertebral artery is dominant. No significant stenosis is present. IMPRESSION: 50-60% stenosis of the right carotid bulb. Reviewed, Interpreted and Dictated by Trey Nuñez III, MD Transcribed by Britt Fischer Authenticated and [facility]
--- NOTE | 2022-09-29 12:06 | CT_ITS ---
FINAL REPORT TECHNIQUE: Thin section axial CT with IV contrast supplemented with multiplanar reconstruction under CT angiogram protocol. 3-D reconstructions were performed. This study was performed with techniques to keep radiation doses as low as reasonably achievable (ALARA). Individualized dose reduction techniques using automated exposure control or adjustment of mA and/or kV according to the patient''s size were employed. CLINICAL HISTORY: dizziness FINDINGS: The distal vertebral, basilar and distal internal carotid arteries have an unremarkable appearance. No aneurysm is seen. Major intracranial vessels are patent without significant stenosis. IMPRESSION: No evidence of significant stenosis. Reviewed, Interpreted and Dictated by Trey Nuñez III, MD Transcribed by Britt Fischer Authenticated and [facility]
--- NOTE | 2022-09-29 12:20 | HMH.EDGENADL ---
Discharge Plan Disposition Patient Disposition: Home, Self-Care Condition: Good Prescriptions Prescriptions: New Antivert 50 mg tablet 50 mg PO BID PRN (Reason: dizziness) Qty: 14 0RF No Action nitroglycerin 0.4 mg tablet, sublingual 0.4 mg sublingual Q5M PRN (Reason: chest pain) Qty: 10 0RF Rx Instructions: do not exceed 3 doses per episode phenobarbital 20 mg/5 mL (4 mg/mL) elixir 11 mg PO Q12H Label Comments: take 2.75 ml every 12 hours allopurinol 300 mg tablet 300 mg PO DAILY Label Comments: TAKE 1 TABLET BY MOUTH ONCE DAILY metoprolol succinate 25 mg tablet extended release 24 hr 25 mg PO DAILY losartan-hydrochlorothiazide 50-12.5 mg tablet 1 tab PO DAILY Referrals Follow up/Referrals: Provider,Referral, MD [Primary Care Provider] - See instructions Clinical Impressions Clinical Impression: Benign paroxysmal positional vertigo Instructions Patient Instructions: Vertigo Print Language Print Language: Albanian Discharge ED Provider: Ulysses Lucero General Adult HPI General Chief complaint: Dizziness Stated complaint: dizziness Time Seen by Provider: 09/29/22 14:12 Mode of Arrival: EMS Source of Information: Patient Limitations: No Limitations Description of Symptoms (Recalled from ER Triage Doc. by RN): Patient states that when he woke up this morning he began to get dizzy anytime he stands up. Denies LOC or pain. History of Present Illness HPI narrative: Patient presents to the emergency department with dizziness upon awakening this morning. He states that he has been significantly unsteady. He describes worsening visual changes. Denies any headache but states that he had some right upper shoulder pain. Denies any cardiac history. States that he is nauseous when he is laying however becomes significantly more nauseous, dizzy upon standing. Denies any previous history of similar symptoms. Denies any numbness, tingling or weakness in any of his arms or legs Related Data Home Medications Medication Instructions Recorded Confirmed allopurinol 300 mg tablet 300 mg PO DAILY Gout 09/29/22 09/29/22 losartan 50 mg-hydrochlorothiazide 1 tab PO DAILY High blood pressure 09/29/22 09/29/22 12.5 mg tablet metoprolol succinate 25 mg 25 mg PO DAILY High blood pressure 09/29/22 09/29/22 tablet,extended release 24 hr phenobarbital 20 mg/5 mL (4 mg/mL) 11 mg PO Q12H Seizure 09/29/22 09/29/22 oral elixir Previous Rx's Medication Instructions Recorded nitroglycerin 0.4 mg sublingual 0.4 mg sublingual Q5M PRN chest 08/09/22 tablet pain #10 tabs meclizine 50 mg tablet (Antivert) 50 mg PO BID PRN dizziness #14 tabs 09/29/22 Allergies Allergy/AdvReac Type Severity Reaction Status Date / Time codeine Allergy Mild Verified 09/07/22 13:30 [facility] Disclaimer: The information contained in this section may have been updated after the patient was seen, as this information can be updated by other users. Social History Smoking Status: Never smoker alcohol intake: never current occupational status: disabled Travel in the last 8 weeks: Inside the [place] ROS Obtained: Yes All systems reviewed & no additional complaints except as documented Constitutional Constitutional: Reports system reviewed and no additional complaints, except as documented Eyes Eyes: Reports blurry vision ENT Ears, Nose, Mouth, and Throat: Reports dizziness Neurologic Neurologic: Reports dizziness Physical Exam General General appearance: alert and in no apparent distress Head Head exam: atraumatic and normocephalic Eye Eye exam: Present normal appearance, PERRL and EOMI Respiratory Respiratory exam: Present normal lung sounds bilaterally Cardiovascular Cardiovascular exam: Present regular rate, normal rhythm and normal heart sounds Abdominal Exam Abdominal exam: Present soft and fadia
--- NOTE | 2022-09-29 12:26 | MR_ITS ---
FINAL REPORT CLINICAL HISTORY: DIZZINESS, VISUAL CHANGES FINDINGS: Multiplanar MR imaging of the brain was performed without contrast. Motion artifact is noted on many of the images. There is no evidence of intracranial hemorrhage or mass. The ventricular size is normal. There is no evidence of shift of the midline structures. No abnormal extra-axial fluid collection is identified. The posterior fossa and brainstem have an unremarkable appearance. No area of abnormal restricted diffusion is identified. Normal major vessel vascular flow voids are seen. IMPRESSION: Unremarkable brain with no acute intracranial abnormality. Authenticated and [facility]
--- NOTE | 2022-09-29 12:26 | PC.NURSE ---
Spoke with Sarah in MRI about pt having brain without. Advised she would be down to get the patient in just a bit. notified.
[2022-09-29 12:28] LABS: Basophils % 0.6 % (0.1-2.0); Eosinophils % 0.5 % (0.1-12.0); Hematocrit 50.7 % (42.0-52.0); Hemoglobin 17.3 g/dL (14.1-18.0); Lymphocytes # 1.3 K/mm3 (0.7-4.5); Lymphocytes % 25.8 % (10-50); Mean Corpuscular HGB Conc 34.2 g/dL (31.8-35.4); Mean Corpuscular Hemoglobin 33.3 pg (27.0-31.2); Mean Corpuscular Volume 97.6 fl (80-94); Mean Platelet Volume 8.7 fl (7.4-10.4); Monocytes # 0.3 K/mm3 (0.1-1.0); Monocytes % 6.7 % (1.7-9.3); Neutrophils # 3.2 K/mm3 (1.8-7.8); Neutrophils % 66.4 % (37.0-80.0); Platelet Count 174 K/mm3 (142-424); Red Cell Distribution Width 13.1 % (11.5-17.5); White Blood Count 4.9 K/mm3 (4.8-10.8)
[2022-09-29 12:30] VITALS: BP 122/95; PULSE 86; O2SAT 97
[2022-09-29 12:35] LABS: Alanine Aminotransferase 86 U/L (12-78); Albumin Level 4.6 g/dl (3.5-5.0); Albumin/Globulin Ratio 1.7 (1.1-1.8); Alkaline Phosphatase 77 U/L (38-126); Anion Gap 17.8 mEq/L (5-15); Aspartate Amino Transferase 64 U/L (17-59); Bilirubin,Total 0.9 mg/dl (0.2-1.3); Blood Urea Nitrogen 14 mg/dl (9-20); Calcium 9.3 mg/dl (8.4-10.2); Carbon Dioxide 28 mmol/L (22.0-30.0); Chloride 94 mmol/L (98-107); Creatinine Clearance Estimated 101 mL/min (50-200); Estimated Glomerular Filt Rate 70 ml/min (>60); GFR (African American) 85 ML/MIN (>60); Globulin 2.7 g/dL (1.3-3.2); Glucose 105 mg/dl (74-100); Potassium 3.8 mmoL/L (3.5-5.1); Sodium 136 mmol/L (136-145); Total Protein,Serum 7.3 g/dl (6.3-8.2)
[2022-09-29 12:48] LABS: Troponin I < 0.01 ng/ml (0.00-0.034)
--- NOTE | 2022-09-29 13:06 | PC.NURSE ---
Pt remains in MRI
--- NOTE | 2022-09-29 13:51 | PC.NURSE ---
Patient returned from radiology.
--- NOTE | 2022-09-29 14:17 | PC.NURSE ---
rounded on pt gave warm blanket, tap vora at bedside
[2022-09-29 14:56] VITALS: BP 144/84; PULSE 75; RESP 18; TEMP 36.6; O2SAT 99
== END 2022-09-29 15:00 | disposition home or self-care (01) ==
PROVIDERS: Emergency Provider Emergency Medicine
DX: R42 Dizziness and giddiness (principal); H81.10 Benign paroxysmal vertigo, unspecified ear; H53.8 Other visual disturbances
CPT/HCPCS: 70496; 70498; 70551; 80053; 84484; 85025; 93005; 96360; 99285; Q9967

== ENCOUNTER 2022-10-18 13:48 | Outpatient (RCR) | payer OTHER, SELFPAY ==
--- NOTE | 2022-10-18 14:59 | HMH.PTOPEV ---
PT Outpatient Evaluation Rehab PT Outpatient Evaluation Start: 10/18/22 13:52 Freq: Status: Active Protocol: Document 10/18/22 14:46 PHORNE (Rec: 10/18/22 14:59 PHORNE [id number]) E-signed By René Judd, PT Outpatient Therapy Subjective History Subjective History This is the initial PT eval for Claudio Santos, 51 yowm who presents with c/o dizziness and vertigo x ~ 3 wks with insidious onset of symptoms. He states, I just woke up one morning and everything was spinning. He reports vertigo is associated with nausea, as well. He reports sudden onset of symptoms, mostly with layiong on his L side, and short duration of symptoms, ~ 30 sec. He was initially seen in the ED and had CT scan and MRI performed with no acute abnormalities noted. He reports hx of HTN and cardiac issues at baseline, as well as chronic low back pain. Chief Complaint Other Symptom Type Other Symptoms Relieved By Rest/Positioning Prior Functional Limitations None Current Functional Limitations Sleeping,Standing,Recreation Activity Symptom Description Intermittent,Activity Dependent Level of pain today (0-10) 0 Balance Eval Nystagmus Nystagmus Presence Bilateral Nystagmus Description Geotropic,Latency - Immediate Oculomotor Gaze Oculomotor Gaze Nml: Vergence Smooth Pursuit Saccades VOR Cancellation Cover/Uncover Cross Cover [place] Feet Together/Eyes open/Stable Surface pass Feet Together/Eyes Closed/Stable Surface pass Feet Together/Eyes open/Unstable Surface pass Feet Together/Eyes Closed/Unstable pass Surface Outpatient Therapy Assessment Impairments Problems/Impairmments Impaired Walking,Impaired Standing,Impaired Recreational Activities,Impaired Self Care /Self Management Prognosis Rehab Potential Good Clinical Impression Consistent with Diagnosis Yes Short Term Goals Number of
== END 2022-10-22 13:50 | disposition home or self-care (01) ==
LOC: PT 13:48
PROVIDERS: Visit Provider Family Medicine
DX: H81.399 Other peripheral vertigo, unspecified ear (principal)
CPT/HCPCS: 97163

== ENCOUNTER 2023-10-28 18:00 | Outpatient (CLI) | payer OTHER, SELFPAY ==
[2023-10-28 16:39] LABS: Basophils % 0.9 % (0.1-2.0); Eosinophils % 0.7 % (0.1-12.0); Hematocrit 49.9 % (42.0-52.0); Hemoglobin 16.7 g/dL (14.1-18.0); Lymphocytes # 1.4 K/mm3 (0.7-4.5); Mean Corpuscular HGB Conc 33.4 g/dL (31.8-35.4); Mean Corpuscular Hemoglobin 33.6 pg (27.0-31.2); Mean Corpuscular Volume 100.5 fl (80-94); Mean Platelet Volume 9.4 fl (7.4-10.4); Monocytes # 0.3 K/mm3 (0.1-1.0); Neutrophils # 2.1 K/mm3 (1.8-7.8); Neutrophils % 55.4 % (37.0-80.0); Platelet Count 156 K/mm3 (142-424); Red Blood Count 4.96 M/mm3 (4.60-6.20); Red Cell Distribution Width 13.6 % (11.5-17.5); White Blood Count 3.9 K/mm3 (4.8-10.8)
[2023-10-28 16:44] LABS: Alanine Aminotransferase 84 U/L (12-78); Albumin Level 4.6 g/dl (3.5-5.0); Albumin/Globulin Ratio 1.5 (1.1-1.8); Alkaline Phosphatase 76 U/L (38-126); Anion Gap 15.3 mEq/L (5-15); Aspartate Amino Transferase 72 U/L (17-59); Bilirubin,Total 0.8 mg/dl (0.2-1.3); Blood Urea Nitrogen 13 mg/dl (9-20); Calcium 9.9 mg/dl (8.4-10.2); Carbon Dioxide 26 mmol/L (22.0-30.0); Chloride 101 mmol/L (98-107); Chol/HDL Ratio 2.8 (1-3.5); Cholesterol 265 mg/dl (140-200); Estimated Glomerular Filt Rate 63 ml/min (>60); GFR (African American) 76 ML/MIN (>60); Glucose 97 mg/dl (74-100); HDL Cholesterol 93 mg/dl (40-60); Potassium 4.3 mmoL/L (3.5-5.1); Sodium 138 mmol/L (136-145); Total Protein,Serum 7.6 g/dl (6.3-8.2); Triglycerides 97 mg/dl (30-150); VLDL Cholesterol 19 mg/dL (0-40)
[2023-10-28 16:56] LABS: Direct LDL Cholesterol 134.68 mg/dL (100-129)
[2023-10-28 17:02] LABS: 25-OH Vitamin D, Total 18.8 ng/mL (30-100)
[2023-10-28 17:16] LABS: Prostate Specific Ag Screen 1.3 ng/ml (0.0-4.0); Thyroid Stimulating Hormone 5.82 uIU/mL (0.465-4.68)
[2023-10-28 17:41] LABS: Hemoglobin A1C 5.2 % (4.0-6.0)
== END 2023-10-28 23:59 | disposition home or self-care (01) ==
LOC: LAB.DROPOF 10-29 08:31
PROVIDERS: PCP Nurse Practitioner Family; Visit Provider Nurse Practitioner Family
DX: Z12.5 Encounter for screening for malignant neoplasm of prostate (principal); I11.9 Hypertensive heart disease without heart failure; F17.200 Nicotine dependence, unspecified, uncomplicated; E55.9 Vitamin D deficiency, unspecified; Z68.28 Body mass index [BMI] 28.0-28.9, adult; E78.5 Hyperlipidemia, unspecified
CPT/HCPCS: 80050; 80053; 80061; 82306; 83036; 84443; 85025; G0103

== ENCOUNTER 2024-02-10 08:43 | Outpatient (CLI) | payer OTHER, SELFPAY ==
[2024-02-10 17:18] LABS: 25-OH Vitamin D, Total 32.6 ng/mL (30-100)
== END 2024-02-10 23:59 | disposition home or self-care (01) ==
LOC: LAB.DROPOF 02-13 08:43
PROVIDERS: PCP Family Medicine; Visit Provider Family Medicine
DX: E55.9 Vitamin D deficiency, unspecified (principal); R79.89 Other specified abnormal findings of blood chemistry
CPT/HCPCS: 82306

== ENCOUNTER 2024-08-30 14:43 | Outpatient (CLI) | payer OTHER, SELFPAY ==
--- NOTE | 2024-08-30 15:15 | CA_ITS ---
FINAL REPORT TECHNIQUE: Color Doppler, duplex Doppler and coombs scale sonography of the bilateral neck arterial vasculature was performed. Velocities were measured in the carotid arteries. Stenosis evaluation based on the validated velocity criteria. CLINICAL HISTORY: HTN, smokeless tobacco, CTA neck(09/2022) showed 50-60% stenosis at the right carotid bulb. FINDINGS: The peak systolic velocity of the right common carotid artery is 96 cm/s. The peak systolic velocity of the right internal carotid artery is 108 cm/s and end diastolic velocity 37 cm/s. The ICA/CCA ratio is 1.6. A moderate amount of plaque is present. The right external carotid artery is patent. The right vertebral artery is patent with antegrade flow. The peak systolic velocity of the left common carotid artery is 93 cm/s. The peak systolic velocity of the left internal carotid artery is 90 cm/s and end diastolic velocity 43 cm/s. The ICA/CCA ratio is 1.3. A moderate amount of plaque is present. The left external carotid artery is patent. The left vertebral artery is patent with antegrade flow. IMPRESSION: Less than 50% bilateral carotid stenoses. Bilateral patent vertebral arteries with antegrade flow. If indicated, CTA or MRA could further evaluate. Reviewed, Interpreted and Dictated by Ran Conrad MD Transcribed by Britt Fischer Authenticated and [facility]
== END 2024-08-30 23:59 | disposition home or self-care (01) ==
LOC: RT 14:44
PROVIDERS: PCP Family Medicine; Visit Provider Physician Assistant
DX: I65.21 Occlusion and stenosis of right carotid artery (principal)
CPT/HCPCS: 93880

== ENCOUNTER 2024-11-21 08:45 | Outpatient (CLI) | payer OTHER, SELFPAY ==
[2024-11-21 17:02] LABS: Hematocrit 50.1 % (42.0-52.0); Hemoglobin 17.0 g/dL (14.1-18.0); Immature Granulocytes % 0.2 %; Mean Corpuscular HGB Conc 33.9 g/dL (31.8-35.4); Mean Corpuscular Hemoglobin 32.9 pg (27.0-31.2); Mean Corpuscular Volume 97.1 fl (80-94); Nucleated Red Blood Cells % 0 %; Platelet Count 162 K/mm3 (142-424); Red Blood Count 5.16 M/mm3 (4.60-6.20); Red Cell Distribution Width-SD 44.2 fL; White Blood Count 4.9 K/mm3 (4.8-10.8)
[2024-11-21 17:28] LABS: Alanine Aminotransferase 77 U/L (12-78); Albumin Level 4.8 g/dl (3.5-5.0); Albumin/Globulin Ratio 1.6 (1.1-1.8); Alkaline Phosphatase 73 U/L (38-126); Anion Gap 18.1 mEq/L (5-15); Aspartate Amino Transferase 57 U/L (17-59); Bilirubin,Total 1.0 mg/dl (0.2-1.3); Blood Urea Nitrogen 18 mg/dl (9-20); Calcium 9.9 mg/dl (8.4-10.2); Carbon Dioxide 27 mmol/L (22.0-30.0); Chloride 98 mmol/L (98-107); Cholesterol 259 mg/dl (140-200); Creatinine,Serum 1.30 mg/dl (0.66-1.25); Estimated Glomerular Filt Rate 57 ml/min (>60); GFR (African American) 69 ML/MIN (>60); Globulin 3.0 g/dL (1.3-3.2); Glucose 92 mg/dl (74-100); HDL Cholesterol 69 mg/dl (40-60); Potassium 4.1 mmoL/L (3.5-5.1); Sodium 139 mmol/L (136-145); Total Protein,Serum 7.8 g/dl (6.3-8.2); Triglycerides 87 mg/dl (30-150)
[2024-11-21 17:59] LABS: Thyroid Stimulating Hormone 3.36 uIU/mL (0.465-4.68)
[2024-11-21 18:16] LABS: Hepatitis C Ab Qual. W/ RFX NEGATIVE (Negative)
[2024-11-21 18:18] LABS: Vitamin B12 257 pg/mL (239-931)
[2024-11-21 18:43] LABS: Folate 7.32 ng/mL
[2024-11-21 19:22] LABS: 25-OH Vitamin D, Total 30.9 ng/mL (30-100)
[2024-11-22 05:38] LABS: Hepatitis B Surface Antigen Negative (Negative)
== END 2024-11-21 23:59 | disposition home or self-care (01) ==
LOC: LAB.DROPOF 11-22 13:27
PROVIDERS: PCP Family Medicine; Visit Provider Family Medicine
DX: E78.5 Hyperlipidemia, unspecified (principal); I10 Essential (primary) hypertension; Z11.59 Encounter for screening for other viral diseases; Z11.4 Encounter for screening for human immunodeficiency virus [HIV]; E55.9 Vitamin D deficiency, unspecified
CPT/HCPCS: 80053; 80061; 80074; 82306; 82607; 82746; 84443; 85025; 87340; 87389

== ENCOUNTER 2025-03-18 08:14 | Outpatient (CLI) | payer OTHER, SELFPAY ==
--- OUTSIDE RECORDS SUMMARY | 2025-03-18 08:16 | XMS_ITS | Clinical Summary ---
[facility] Address [address] [place] [id number] Care Team Providers Care Finisher Map And Chart Name Role Phone Provider, No Known Primary Care Provider [phone] Allergies No known active allergies Medications No known medications Social History Tobacco Use Types Packs/Day Years Used Date Smoking Tobacco: Never Assessed Abuse Screen Answer Date Recorded Unsafe at Home or Work/School Not on file Feels Threatened by Someone? Not on file 03/2023 Does Anyone Keep You from Co ntacting Others or Doint Things Outside the Home? Not on file 02/23/2023 Physical Sign of Abuse Present Not on file 1 Housing Stability Answer Date Recorded Current Living Arrangements Not on file 02/13 Potentially Unsafe Housing Conditions Not on ksuh e 02/23/2023 Family and Community Support Answer Jason e Recorded Help with Day-to-Day Activities Not on file 02/23/2023 Lonely or Isolated Not on file 02/23/2023 Employment Answer Date Recorded Do you want help finding or keeping work or a devika b? Not on file 02/23/2023 Disabilities Answer Date Recorded Concentrating, Remembering, or Making Decisions Difficulty Not on file 02/23/2023 Doing Errands Independently Difficulty Not on fi le 02/23/2023 Education Answer Date Recorded Help with school or training? Not on file Preferred Language Not on file 02/23/2023 Sex and Gender Information Value Date Recorded Sex Assigned at Not on file Legal Sex Male 2:49 PM EDT Gender Identity Not on file Sexual Orientation Not on file Last Filed Vital Signs Vital Sign Reading Time Taken Comments Blood Pressure 155/105 02/25/2016 1:42 PM EDT Pulse 86 02/25/2016 1:42 PM EDT Temperature 36.8 C (98.2 F) 02/25/2016 7:45 AM EDT Respiratory Rate 18 02/25/2016 1:00 PM EDT Oxygen Saturation 99% 02/25/2016 7:45 AM EDT Inhaled Oxygen Concentration - - Weight 83.1 kg (183 lb 3.2 oz) 02/25/2016 7:45 A M EDT Height 177.8 cm (5' 10 ) 02/25/2016 7:45 AM EDT Body Mass Index 26.29 02/25/2016 7:45 AM EDT Plan of Treatment Health Maintenance Due Date Last Done Comments ANNUAL PHYSICAL 1968 HEPATITIS C SCREENING 1968 TDAP/TD VACCINES (1 - Tdap) 12/22/1987 COLOGUARD 2013 COLON CANCER SCREENING 5 YEAR SIGMOIDOSCOPY 2013 COLONOSCOPY [address] CANCER SCREENING [address] CT COLONOGRAPHY 2013 FECAL OCCULT BLOOD TEST 2013 FIT Testing (1 year) 2013 Pneumococcal Vaccine 50+ (1 of 1 - PCV) 2018 ZOSTER VACCINE (1 of 2) 2018 INFLUENZA VACCINE 12/14/2024 Insurance Care Teams Finisher Map And Chart Relationship Specialty Start Date End Date Provider, No Known [facility] [place] [address] PCP - General 02/25/16
--- OUTSIDE RECORDS SUMMARY | 2025-03-18 08:17 | XMS_ITS | Patient Health Record ---
[facility] Address [address] [place] [id number] Care Team Providers Care Emergency Medical Technician/Driver Name Role Phone Shamir Mosher Primary Care Provider [phone] Allergies Allergen (clinical drug ingredient) Drug/Non Drug Allergy documented on EMR Reaction Allergy Type Onset Date Status sulfamethoxazole / trimethoprim Bactrim DS GI upset Drug Allergy Active doxycycline Doxycycline Blurred vision Drug Allergy Active homatropine / hydrocodone Hycodan Blurred vision Drug Allergy Active Medications Medication SIG (Take, Route, Frequency, Duration) Notes Start Date End Date Status Allopurinol 300 MG 1 tab(s) orally once a day; Duration: 90 day(s) Active Antivert 50 MG 1 tab(s) orally 3 ti mes a day Not-Taking Losartan Potassium-HCTZ 50-12.5 MG 1 tab(s) orally once a day Active Metoprolol Succinate ER 25 MG 1 tab(s) orally once a day Active Problems Problem Type SNOMED Code ICD Code Onset Dates Problem Status W/U Status Risk Notes Problem Low back pain (471474793) Low back pain (M54.5) Active confirmed Problem Essential hypertension (89528828) Essential hypertension (I10) Active confirmed Problem Mixed hyperlipidemia (012968041) Mixed hyperlipidemia (E78.2) Active confirmed Problem Chronic pain (82777469) Other chronic pain (G89.29) Active confirmed Problem History of gout (630102982) History of gout (Z87.39) Active confirmed Problem Chronic gouty arthritis (73494177) Chronic gout without tophus, unspecified cause, unspecified site (M1A.9XX0) Active confirmed Problem Dyslipidemia (166216258) Dyslipidemia (E78.5) Active confirmed Problem Gout (52103832) Acute gout of left elbow, unspecified cause (M10.9) Active confirmed Plan Of Treatment No Information Insurance Providers Payer Name Payer Address Payer Phone Subscriber Number Group Number Insured Name Patient Relationship to Insured Coverage Start Date Coverage End Date [employer] [address] [place], [place] [id number] THERESA MURPHY Self - patient is the insured Medications Administered Medication Instructions Date of Administration Dosage Notes Depo- Medrol 40 mg/ml 07/21/2015 1 mL Dexamethasone 07/03/2008 1 mL Dexamethasone 09/27/2016 1 mL Dexamethasone 02/16/2017 1 mL Dexamethasone 05/11/2017 1 mL Dexamethasone 06/08/2017 1 mL Medical (General) History Medical History History ICD Code back pain Degenerative Disc Disease Surgical History Surgery Date(Month/Year) Hospitalization History Reason Date(Month/Year) [facility] ER-gout 06/02 [facility] ER-back pain 08/03
--- NOTE | 2025-03-18 09:00 | MR_ITS ---
FINAL REPORT TECHNIQUE: Multiplanar and multisequence imaging of the cervical spine was obtained. CLINICAL HISTORY: Back pain, myelopathy, gait disturbance COMPARISON: None FINDINGS: Motion artifact limits exam. Alignment is normal in the sagittal plane. Vertebral body height is preserved. Signal intensity within the substance of the spinal cord is normal. No acute bone marrow edema. No acute paraspinal abnormality. C2/3: No focal disc herniation, central canal stenosis, or neural foraminal narrowing. C3/4: Mild facet osteoarthropathy. No focal disc herniation. No central canal stenosis. Mild right but no left neuroforaminal narrowing. C4/5: No focal disc herniation, central canal stenosis, or neural foraminal narrowing. C5/6: Annular disc bulge with degenerative endplate changes and facet osteoarthropathy. No central canal stenosis. Mild right greater than left neuroforaminal narrowing. C6/7: No focal disc herniation, central canal stenosis, or neural foraminal narrowing. C7/T1: Annular bulge slightly asymmetric to the right. No central canal stenosis. There may be mild right neuroforaminal narrowing. IMPRESSION: Mild degenerative disc disease of the cervical spine. Reviewed, Interpreted and Dictated by Nicole Almonte MD Transcribed by Guadalupe Vickers Authenticated and [facility][1]
--- NOTE | 2025-03-18 09:45 | MR_ITS ---
FINAL REPORT TECHNIQUE: Multiplanar and multisequence MR imaging was obtained through the thoracic spine. CLINICAL HISTORY: Back pain, myelopathy, gait disturbance COMPARISON: None FINDINGS: There is normal alignment of the thoracic vertebral bodies in the sagittal plane. Vertebral body height is preserved. There is no bone marrow edema or pathologic marrow replacement. Signal intensity within the substance of the spinal cord is normal. There is a T2 hyperintense and T1 hypointense subcutaneous lesion measuring 26 mm at the level of T2-3 which could represent sebaceous cyst. Multilevel disc desiccation. At T9-10, there is right paracentral protrusion with mild mass effect on the thecal sac. At T10-11, there is a small central protrusion. There is no focal disc herniation, central canal stenosis, or significant foraminal narrowing. IMPRESSION: No acute abnormality of the thoracic spine. Small disc protrusions in the lower thoracic spine without significant central canal stenosis. Subcutaneous lesion upper back could be a sebaceous cyst. Reviewed, Interpreted and Dictated by Nicole Almonte MD Transcribed by Guadalupe Vickers Authenticated and [facility]
[2025-03-18 12:35] LABS: Vitamin B12 334 pg/mL (239-931)
[2025-03-19 14:46] LABS: RPR W/RFX Titers Nonreactive (Nonreactive)
== END 2025-03-18 23:59 | disposition home or self-care (01) ==
PROVIDERS: PCP Family Medicine; Visit Provider Specialist
DX: M54.9 Dorsalgia, unspecified (principal); R26.9 Unspecified abnormalities of gait and mobility; G62.9 Polyneuropathy, unspecified; M50.30 Other cervical disc degeneration, unspecified cervical region
CPT/HCPCS: 36415; 72141; 72146; 82525; 82607; 84425; 84630; 85651; 86592

== ENCOUNTER 2025-05-02 07:54 | Day surgery (SDC) | payer OTHER, SELFPAY ==
[2025-05-02 08:04] VITALS: BMI 29.0
[2025-05-02 08:08] VITALS: BP 165/99; PULSE 95; RESP 16; TEMP 36.6; O2SAT 100
--- NOTE | 2025-05-02 09:48 | EXP.OP.NOTE ---
Date of procedure: 05/02/25 Pre-op Diagnosis:: 3 cm mid-upper back cyst 1.5 cm mid-back cyst with overlying subcutaneous lipoma Post-op Diagnosis:: Same Procedure performed:: Excision of 3 cm mid upper back cyst Excision of 1.5 cm mid back cyst with overlying subcutaneous lipoma Surgeon:: Yovany Dominguez MD Anesthesia: local Estimated blood loss (mL): 15 Operative findings:: Lesions excised in toto Operative note:: After informed consent was obtained the patient was taken to the procedure room. His back was prepped and draped in a sterile fashion. After infiltration with local anesthetic an elliptical incision was made around the mid upper back 3 cm cystic lesion. A combination of sharp dissection and electrocautery was utilized to transect through the deeper subcutaneous tissue. The lesion was excised in toto and passed off for pathologic evaluation. Electrocautery was utilized to achieve hemostasis. Attention was then turned to the mid back cystic lesion. This lesion was excised in the same manner as noted above. Electrocautery was utilized to achieve hemostasis and both incisions were reapproximated with a combination of interrupted 3-0 nylon and interrupted 4-0 nylon. Dressings were applied and the patient was discharged home in stable condition. Condition: stable Disposition: no change Specimens:: 3 cm mid-upper back cyst 1.5 cm mid-back cyst with subcutaneous lipoma Complications:: No immediate
[2025-05-02 09:50] VITALS: BP 154/89; PULSE 100; RESP 18; TEMP 36.6; O2SAT 96
[2025-05-02] MEDS: LIDOCAINE 1% 20ML MDV 20 ML ×3 (09:53)
== END 2025-05-02 10:12 | disposition home or self-care (01) ==
PROVIDERS: PCP Family Medicine; Visit Provider Surgery
PROC: (CPT 11406; principal; 2025-05-02 09:00)
DX: L72.0 Epidermal cyst (principal); D17.1 Benign lipomatous neoplasm of skin and subcutaneous tissue of trunk; Z88.5 Allergy status to narcotic agent; M54.50 Low back pain, unspecified; G89.29 Other chronic pain; M10.9 Gout, unspecified; I10 Essential (primary) hypertension; Z79.899 Other long term (current) drug therapy; F17.290 Nicotine dependence, other tobacco product, uncomplicated
CPT/HCPCS: 11406; J2003